=== PATIENT | male | born 1940 | race Asian ===

== ENCOUNTER 2016-11-01 08:03 | Emergency (ER) | payer SELFPAY ==
[~2016-11-01] VITALS: Ht 172.7 cm; Wt 72.6 kg
[~2016-11-01 08:03] MED LIST: COLC0.6T46 PO; FAMO-92 PO; FERR325T62 PO; FURO10SO PO; LOSA25TA14 PO; TERA5CAP PO; VIC PO; WARF2TAB1 PO; WARF4TAB PO; [UNRECOGNIZED DRUG - CODE] PO; [UNRECOGNIZED DRUG - CODE] PO
[2016-11-01 08:08] VITALS: BP 127/76
--- NOTE | 2016-11-01 08:16 | NUR ---
Patient ambulated with assistance to bed 8.
--- NOTE | 2016-11-01 08:16 | NUR ---
PATIENT PRESENTS TO ED WITH C/O OF HEMATURIA . PT STATES HE HAD PRITCHARD CATHETER 3 WEEKS AGO AND WAS STARTED ON FLOMAX . DENIES N/V/D; SKIN IS PINK/WARM/DRY; AAOX4 WITH EVEN AND STEADY GAIT; LUNGS CLEAR BL; HR EVEN AND REGULAR; PT DENIES ANY FEVER, CP, SOB, OR COUGH AT THIS TIME; PATIENT REPORTS OF ABDOMINAL/BLADDER PAIN AT THIS ; VSS; PATIENT POSITIONED FOR COMFORT; HOB ELEVATED; BEDRAILS UP X2; BED DOWN. ER MD MADE AWARE OF PT STATUS.
[2016-11-01 09:46] VITALS: BP 119/76
== END 2016-11-01 09:46 | disposition home or self-care (01) ==
LOC: MED 08:03
DX: N39.0 Urinary tract infection, site not specified (principal); I10 Essential (primary) hypertension; I50.9 Heart failure, unspecified; I48.91 Unspecified atrial fibrillation; Z79.899 Other long term (current) drug therapy
CPT/HCPCS: 51702; 81002; 99284

== ENCOUNTER 2016-11-02 10:28 | Inpatient (IN) | payer MEDICAID, OTHER ==
[~2016-11-02] VITALS: Ht 172.7 cm; Wt 67.6 kg
[~2016-11-02 10:28] MED LIST changes: -COLC0.6T46 PO; +COLCHICINE0.6 M1 PO; +COUMADIN2 M1 PO; +COUMADIN4 MG PO; +COZAAR25 MG PO; -FAMO-92 PO; -FERR325T62 PO; +FERRATE325 MG PO; -FURO10SO PO; +LASIX10 MG/M1 PO; -LOSA25TA14 PO; +PEPCID40 MG PO; +POTASSIUM1 PDS PO; -TERA5CAP PO; +TERAZOSIN5 MG PO; +ULTRA B-100 COM1 TER PO; -VIC PO; +VICODIN 5/500 M1 TAB PO; -WARF2TAB1 PO; -WARF4TAB PO; -[UNRECOGNIZED DRUG - CODE] PO; -[UNRECOGNIZED DRUG - CODE] PO
[2016-11-02 10:41] VITALS: BP 134/58
--- NOTE | 2016-11-02 11:53 | NUR ---
PT AMBULATED TO BED 8
--- NOTE | 2016-11-02 12:00 | NUR ---
PT BIB AND SON;PT HAD PIRTCHARD PLACED IN ED YESETERDAY, C/O BLEEDING SINCE FOLY WAS PLACED;PT DENIES ANY CP/SOB/DIZZINESS/HEADACHE AT THIS TIME;PT HAS HX OF CHF;AAOX4; NO ACUTE DISTRESS NOTED AT THIS TIME;UNLABORED BREATHING W/ SYMMETRICAL CHEST EXPANSION;HOB ELEVATED;NEEDS ATTENDED;SAFETY MEASURES DONE;MD Made aware of pt's condition.
[2016-11-02] MEDS ORDERED: NACL 0.9% 1,000 ML IV SCH (12:09)
--- NOTE | 2016-11-02 12:48 | NUR ---
IRRIGATION DONE BY ALEXIS BURROUGHS.PT TOLERATED WELL PROCEDURE;WILL CONTINUE TO MONITOR PT.
--- NOTE | 2016-11-02 13:30 | NUR ---
PT IS SLEEPING;NO ACUTE DISTRESS NOTED AT THIS TIME;WILL CONTINUE TO MONITOR PT.
[2016-11-02] MEDS ORDERED: MORPHINE SULFATE 2 MG/ML SYR IVP PRN (14:10)
[2016-11-02] MEDS ORDERED: ONDANSETRON 4 MG/2 ML VIAL IVP PRN (14:10)
--- NOTE | 2016-11-02 14:19 | NUR ---
PT LYING ON BED;NO ACUTE DISTRESS NOTED; AT BEDSIDE;WILL CONTINUE TO MONITOR PT
--- NOTE | 2016-11-02 15:11 | NUR ---
Patient will be admitted to care of DR BRODY. Admited tO TELE. Will go to [facility] [address]. Belongings list completed. Report to ALEXIS QUINTEROS.
--- NOTE | 2016-11-02 16:00 | NUR ---
RECEIVED REPORT FROM ER. PT ON THE FLOOR. PT IS ALERT AND ORIENTED. AT BEDSIDE. PT IS ON ROOM AIR. V/S WITHIN NORMAL RANGE. PT HAS IV ON L AC 20SL. PT HAS PERINEAL DERMATITIS AND BLE DISCOLORATION AND NON PITTING EDEMA. PT DENIES PAIN, SOB. PT HAS A PRITCHARD CATH W/ DARK RED BLOOD IN THE BAG. ADMINISTERED TELE MONITOR, ID BAND, AND YELLOW SOCKS AND FALL SIGN ON DOOR. WILL CONTINUE TO MONITOR PT AND ALSO ADMITTING ORDERS.
[2016-11-02] MEDS: NACL 0.9% 1,000 ML IV SCH (16:07)
[2016-11-02 16:36] VITALS: BP 121/61
[2016-11-02] MEDS ORDERED: CALCIUM GLUCONATE 500 MG TAB PO ONE (16:40)
[2016-11-02] MEDS ORDERED: PHYTONADIONE 10 MG/ML AMP IM ONE (17:45)
[2016-11-02] MEDS ORDERED: CALCIUM ACETATE 667 MG TAB PO ONE (17:50)
--- NOTE | 2016-11-02 18:00 | NUR ---
DR. CAMPOS WITH FAMILY, ANSWERING QUESTIONS.
--- NOTE | 2016-11-02 19:09 | NUR ---
ENDORSED PT TO THE UMBRELLA FINISHER NURSE AT BEDSIDE FOR CONTINUITY OF CARE. PT IS IN STABLE CONDITION. AT BEDSIDE. SHE WILL STAY UNTIL 9PM AND GO HOME. SHE WILL BE BACK IN THE MORNING. STILL WAITING FOR DR. CAMPOS'S PHONE CALL TO CLARIFY "K" ORDER. IM,IV OR PO. LEFT MESSAGE WITH PHARMACY RE. LOPRESSOR AND CALCIUM ACETATE. NOT GIVEN. JOSE A TO F/U.
[2016-11-02 19:45] VITALS: BP 85/48
--- NOTE | 2016-11-02 19:45 | NUR ---
RECEIVED PT IN BED. STABLE CONDITION FROM AM NURSE. AWAKE,ALERT AND ORIENTED X4. WITH FAMILY MEMBER AT BEDSIDE. NO ACUTE DISTRESS NOTED . ON TELE MONITOR. HAS IVF INFUSING WELL ON THE LT AC #20. CLEAR AND PATENT. PRITCHARD CATH STILL BLOODY. VITAL SIGNS TAKEN AND BP LOW 85/48, HR-90,R-18, TEMP 99.1 . ON RA 94% O2 SAT. NO C/O DIZZINESS, NOR PAIN NOTED. CHECKED THE BP SEVERAL TIMES AND STILL LOW 84/42. WILL PAGED TO MADE HIM AWARE. BED ON LOW POSITION.CALL LIGHT WITHIN EASY REACH. WILL CONTINUE TO MONITOR.
[2016-11-02] MEDS ORDERED: NACL 0.9% 500 ML IV ONE (20:00)
--- NOTE | 2016-11-02 20:05 | NUR ---
DR. DIAZ WAS PAGED @194 .CALLED BACK. MADE AWARE ABOUT LOW BP AND LOW BLOODY URINE OUTPUT . WITH ORDERS.
[2016-11-02] MEDS: METOPROLOL 25 MG TAB PO SCH (20:10)
--- NOTE | 2016-11-02 20:25 | NUR ---
CALLED PHARMACY REGARDING VIT K IM ORDER. STILL NEED CLARIFICATION WITH MD ABOUT THE ROUTE. DR. DIAZ WAS PAGED AND CALLED BACK .WILL CHANGE THE ROUTE.
[2016-11-02] MEDS ORDERED: TERAZOSIN 5 MG CAP PO SCH (21:00)
[2016-11-02] MEDS ORDERED: FERROUS SULFATE 325 MG PO SCH (21:00)
--- NOTE | 2016-11-02 21:21 | NUR ---
TRIED TO CONTACT US . ABLE TO TALK TO TIAGO,MADE AWARE OF THE STAT US RENAL.
--- NOTE | 2016-11-02 21:30 | NUR ---
PAGED DR. DIAZ FOR LATEST BP 93/49 AFTER THE NS BOLUS. NO NEW ORDER . CONTINUE THE PREVIOUS IV NS 60 ML/HR. REGARDING THE GASTRIC OB, HE SAID TO CANCEL THEN ORDER STOOL OB X1.
--- NOTE | 2016-11-02 22:00 | NUR ---
DR. DIAZ PAGED AGAIN ABOUT THE RESULT OF CBC. CALLED BACK AND MADE AWARE. WITH ORDERS,TYPE AND SCREEN AND REPEAT HH AT 0300.
[2016-11-02] MEDS ORDERED: PHYTONADIONE 10 MG/ML AMP IV ONE (22:20)
--- NOTE | 2016-11-02 22:30 | NUR ---
BLADDER SCAN WAS DONE. THERE IS 384 ML URINE RESIDUAL . NO BLADDER DISTENTION NOTED. PRITCHARD CATH EMPTIED 800ML. WILL CONTINUE TO MONITOR PRITCHARD OUTPUT.
[2016-11-02] MEDS ORDERED: PHYTONADIONE 5 MG in NACL 0.9% 50 ML IV ONE (22:35)
[2016-11-02] MEDS ORDERED: PHYTONADIONE 10 MG/ML AMP ONE (22:50)
[2016-11-02] MEDS ORDERED: CALCIUM GLUCONATE 500 MG TAB PO SCH (23:20)
[2016-11-02] MEDS: SIMVASTATIN 40 MG TAB PO SCH (23:44)
--- NOTE | 2016-11-02 23:45 | NUR ---
SLEEPING WELL. NO ACUTE DISTRESS NOTED. V/S TAKEN AND LATEST TEMP-97.8-BP-97/52,PULSE-90,RESP-18 AND O2 SAT 97%. WILL CONTINUE TO MONITOR.
[2016-11-02 23:48] VITALS: BP 97/52
--- NOTE | 2016-11-03 00:05 | NUR ---
PT KEPT NPO AFTER MN ORDERED. PT VERBALIZED UNDERSTANDING.
--- NOTE | 2016-11-03 00:40 | NUR ---
MADE ROUNDS. PT IS ASLEEP.NO S/S OF ANY DISCOMFORT NOR PAIN NOTED. WILL CONTINUE TO MONITOR.
[2016-11-03] MEDS: NACL 0.9% 1,000 ML IV SCH ×2 (01:14→23:08)
[2016-11-03 03:52] VITALS: BP 96/50
--- NOTE | 2016-11-03 04:10 | NUR ---
ABLE TO TALK TO DR. DIAZ. MADE AWARE OF THE RESULT OF REPEAT H/H 8.3 AND 24.9 ALSO RELAYED TO HIM RESULT OF BLADDER SCAN ANS RENAL US. NO NEW ORDER MADE.
--- NOTE | 2016-11-03 04:50 | NUR ---
PT C/O PAIN AN DISCOMFORT ON THE BLADER. CHECKED BLADDER IS FULL AND DISTENDED. IRRIGATED PRITCHARD CATH ORDERED WITH STERILE WATER . OBTAINED BLOOD CLOTS .CATHETER STARTED FLOWING BLOODY URINE AGAIN. PT SAID HE FEEL BETTER, NO MORE PAIN. WILL STILL CONTINUE TO MONITOR.
--- NOTE | 2016-11-03 06:00 | NUR ---
SLEEPING AT THIS TIME. NO S/S OF ANY DISTRESS NOR PAIN NOTED.
--- NOTE | 2016-11-03 07:10 | NUR ---
ENDORSED PT IN STABLE CONDITION TO AM NURSE.
--- NOTE | 2016-11-03 07:11 | NUR ---
RECEIVED REPORT FROM THE RESIDENTIAL LEASING AGENT AT BEDSIDE FOR CONTINUITY OF CARE. PT WOKE UP WHEN WE WALKED IN. HE IS AWAKE AND ORIENTED. PT'S BLADDER WAS HARD AND SLIGHTLY DISTENDED. IRRIGATED THE PRITCHARD CATH WITH 120ML OF STERILE WATER, PT PRITCHARD CATH IS NOW FLOWING FREELY. PT MORE COMFORTABLE. INSTRUCTED PT UROLOGIST CONSULT TODAY. UPDATED THE BOARD. WILL BE BACK TO FURTHER ASSESS PT.
--- NOTE | 2016-11-03 07:30 | NUR ---
VS WITHIN IN NORMAL RANGE. IV IN L AC 20G, STILL INTACT AND PATENT. NS AT 60ML. NO COMPLAINTS. DENIES PAIN. PRITCHARD CATH STILL FLOWING FREELY. WILL CONTINUE TO MONITOR PT.
[2016-11-03 08:00] VITALS: BP 100/56
--- NOTE | 2016-11-03 08:30 | NUR ---
SPOKE TO DR. CAMPOS ABOUT PT'S CRITICAL LABS: BUN/CREA 65/5.[address] SANDOVAL. NO ORDERS GIVEN. I ALSO TOLD HIM WE ARE IRRIGATING BLADDER Q 2-3 HRS.
[2016-11-03] MEDS: METOPROLOL 25 MG TAB PO SCH (08:53)
[2016-11-03] MEDS: TAMSULOSIN 0.4 MG CAP PO SCH (08:54)
--- NOTE | 2016-11-03 08:55 | NUR ---
ADMINISTERED MORNING MEDS. PT BP IS STILL ON THE LOW END SO I HELD THE LOPRESSOR. PT TOLERATED IT WELL.
[2016-11-03] MEDS ORDERED: POTASSIUM PHOSPHATE PO SCH (09:00)
[2016-11-03] MEDS ORDERED: POTASSIUM ACETATE PO SCH (09:00)
[2016-11-03] MEDS ORDERED: FAMOTIDINE 40 MG PO SCH (09:00)
[2016-11-03] MEDS ORDERED: NON-FORMULARY ITEM (Colchicine 0.6 MG) PO SCH (09:00)
[2016-11-03] MEDS ORDERED: POTASSIUM GLUCONATE PO SCH (09:00)
--- NOTE | 2016-11-03 10:20 | NUR ---
PT WAS C/O OF BLADDER DISCOMFORT. NOTED NO URINE FLOWING. IRRIGATED 120ML OF STERILE WATER. PRITCHARD IS FLOWING AGAIN. EMPTIED 450ML. ABOUT 500ML IN THE PRITCHARD BAG. PT TOLERATED WELL. CHANGED ALL LINENS AND PERFORMED ADLS. PT IS CLEAN AND COMFORTABLE. ALL NEEDS MET. ALL SAFETY MEASURE IN PLACE. WILL CONTINUE TO MONITOR PT.
--- NOTE | 2016-11-03 11:31 | NUR ---
PT RESTING. IV PUMP BEEPING. RESTARTED IV PUMP. FLOWING NOW. ASKED ABOUT HIS BLADDER. HE IS FEELING A BIT UNCOMFORTABLE. IRRIGATED ABOUT 280MLS. URINE FLOWING IN THE CATHETER. WILL CONTINUE TO MONITOR PT.
[2016-11-03 12:00] VITALS: BP 96/45
--- NOTE | 2016-11-03 13:30 | NUR ---
AND DAUGHTER AT BEDSIDE. PT IS RESTING COMFORTABLY. NO ABD DISCOMFORT. PRITCHARD STILL FLOWING FREELY. WILL CONTINUE TO MONITOR PT.
--- NOTE | 2016-11-03 15:15 | NUR ---
SPOKE TO DR. CAMPOS RE PT CARE. PER DR. CAMPOS, DR. ZAPATA WAS HERE THIS MORNING. PER DR. ZAPATA, UROLOGICALLY SPEAKING PT IS FINE. WILL GET HIM ESTABLISHED WITH A UROLOGIST OUTPT BASIS. DR. CAMPOS STATES THAT WE WILL KEEP MONITORING HIS LABS. ONCE THE LABS IMPROVE, PT CAN BE DISCHARGED. PT WILL BE GOING HOME IN A FEW DAYS WITH THE PRITCHARD CATH AND WILL TEACH FAMILY TO IRRIGATE. LABS THIS AFTERNOON AND TOMORROW. WILL CONTINUE TO MONITOR PT.
[2016-11-03 16:00] VITALS: BP 88/47
[2016-11-03] MEDS: CALCIUM CARB/VIT-D 500 MG/200 IU 1 TAB PO SCH (16:10)
--- NOTE | 2016-11-03 16:26 | NUR ---
IRRIGATED PT'S PRITCHARD CATH AGAIN. FLUSHED WITH 180 MLS OF STERILE WATER. PRITCHARD NOW FLOWING. PT TOLERATED WELL.
[2016-11-03] MEDS ORDERED: CALCIUM ACETATE 667 MG TAB PO SCH (17:00)
--- NOTE | 2016-11-03 18:20 | NUR ---
HAD A VERY SMALL BM. COLLECTED THE SAMPLE FOR OCCULT BLOOD SENT IT W/ DIOMEDES TO THE LAB. PT IS BACK IN BED. COMFORTABLE. WOULD LIKE FOR ME TO CALL AND SPEAK TO DAUGHTER BEFORE I LEAVE FOR UPDATES.
[2016-11-03] MEDS ORDERED: WARFARIN 1 MG TAB PO ONE (18:30)
--- NOTE | 2016-11-03 18:51 | NUR ---
CALLED AND SPOKE VELLY, DAUGHTER OF PT. UPDATED HER WITH HIS CONDITION AND WHAT THE PLAN IS. ANSWERED ALL QUESTIONS.
--- NOTE | 2016-11-03 19:30 | NUR ---
RECEIVED REPORT FROM DAY RN AT BEDSIDE, PATIENT IS AAOX4 RESTING IN BED WITH FAMILY AT BEDSIDE, PATIENT IS ON ROOM AIR, NO SOB OR SIGN OF DISTRESS AT THIS TIME, IV TO LAC PATENT AND INTACT WITH IV FLUIDS INFUSING WELL, PATIENT HAS PRITCHARD DRAINING DARK RED BLOODY URINE. BLADDER IS MILDLY DISTENDED, PATIENT DENIES PAIN AT THIS TIME, SKIN IS INTACT WITH PERINEAL DERMATITIS AND BLE EDEMA NON PITTING AND DISCOLORATION. DISCUSSED PLAN OF CARE WITH PATIENT, PATIENT VERBALIZED UNDERSTANDING, CALL LIGHT WITHIN REACH. WILL CONTINUE TO MONITOR.
--- NOTE | 2016-11-03 19:39 | NUR ---
ENDORSED PT TO THE VICE PRESIDENT TAX NURSE AT BEDSIDE FOR CONTINUITY OF CARE. PT IS IN STABLE CONDITION.
[2016-11-03 19:56] VITALS: BP 99/50
[2016-11-03] MEDS: SIMVASTATIN 40 MG TAB PO SCH (21:02)
--- NOTE | 2016-11-03 21:04 | NUR ---
PM MEDICATION ADMINISTERED, PATIENT TOLERATED WELL, PATIENT C/O BLADDER FULLNESS, IRRIGATED WITH 150CC OF STERILE WATER, PRITCHARD NOW DRAINING, CALL LIGHT WITHIN REACH. WILL CONTINUE TO MONITOR.
[2016-11-04] VITALS: BP 102/54
--- NOTE | 2016-11-04 00:10 | NUR ---
VITAL SIGNS STABLE, NO SOB OR SIGN OF DISTRESS, IRRIGATED PRITCHARD WITH 180 ML STERILE WATER, PATIENT TOLERATED WELL, PATIENT RESTING IN BED, CALL LIGHT WITHIN REACH. WILL CONTINUE TO MONITOR.
--- NOTE | 2016-11-04 02:22 | NUR ---
PATIENT SLEEPING, NO SOB OR SIGN OF DISTRESS AT THIS TIME, CALL LIGHT WITHIN REACH. WILL CONTINUE TO MONITOR.
--- NOTE | 2016-11-04 03:50 | NUR ---
IRRIGATED PRITCHARD WITH 180 CC STERILE WATER, PATIENT TOLERATED WELL, VITAL SIGNS STABLE, NO SIGN OF DISTRESS AT THIS TIME. CALL LIGHT WITHIN REACH. WILL CONTINUE TO MONITOR
[2016-11-04 04:00] VITALS: BP 101/56
--- NOTE | 2016-11-04 07:20 | NUR ---
RECEIVED PT IN BED. ALERT, AWAKE, ORIENTEDX4. NO SOB NOTED AT THIS TIME. ON ROOM AIR. BREATHING EVEN AND UNLABORED. DENIES ANY PAIN OR DISCOMFORT AT THIS TIME. POSITIVE BOWEL SOUNDS NOTED ON FOUR QUADRANTS. PT AMBULATORY WITH ASSIST. SOME DERMATITIS NOTED ON PERINEAL AREA, KEPT CLEAN AND DRY. PT WITH FC, HEMATURIA NOTED. SAFETY PRECAUTION IN PLACE. CALL LIGHT WITHIN REACH.
--- NOTE | 2016-11-04 07:30 | NUR ---
ENDORSED PATIENT TO DAY RN AT BEDSIDE PATIENT IN STABLE CONDITION
--- NOTE | 2016-11-04 07:50 | NUR ---
PATIENT HAS BEEN SCREENED AND CATEGORIZED MODERATE NUTRITION RISK. PATIENT WILL BE SEEN WITHIN 3-5 DAYS OF ADMISSION. 11/05/16-11/07/[address]
[2016-11-04 08:00] VITALS: BP 102/61
[2016-11-04] MEDS: TAMSULOSIN 0.4 MG CAP PO SCH (09:04)
[2016-11-04] MEDS: CALCIUM CARB/VIT-D 500 MG/200 IU 1 TAB PO SCH ×3 (09:04→17:27)
[2016-11-04] MEDS: METOPROLOL 25 MG TAB PO SCH ×2 (09:05→20:59)
--- NOTE | 2016-11-04 09:50 | NUR ---
WOUND CARE EVALUATION NOTES: REASON FOR EVALUATION: PERINEAL DERMATITIS COMPLETE SKIN ASSESSMENT DONE ON THIS 76 Y/O MALE PATIENT FROM HOME TO [facility], WITH INITIAL DIAGNOSIS OF ACUTE RENAL FAILURE, GROSS HEMATURIA AND URINARY RETENTION. PAST MEDICAL HISTORY INCLUDE A FIB, CHF, HYPERTENSION, BPH AND CVA. ALL ABOVE INFORMATION WAS OBTAINED FROM THE ADMISSION H&P. LABS ARE WBC 5.4, H/H 7.6/22.7, GLUCOSE 91, ALBUMIN 2.6, PT/INR 13.4/1.4 AND PTT 29.7. CURRENT MEDS INCLUDE WARFARIN, CEFTRIAXONE, MORPHINE AND NORCO. PATIENT IS AWAKE, SLOWED MOVEMENTS BUT ABLE TO FOLLOW SIMPLE COMMANDS. SKIN WARM TO TOUCH WNL, TOENAILS ARE SLIGHTLY THICKENED, NO EDEMA, WITH HAIR GROWTH AND +3 BILATERAL PEDAL PULSES. FC 14 FR PATENT AND INTACT TO BLOODY URINE IN MODERATE AMOUNT. ABLE TO AMBULATE CLAIMED. BLE WITH DISCOLORATIONS NOTED. ABLE TO TURN SELF WITH NO ASSISTANCE. INITIAL PLAN OF CARE AND PRESSURE PREVENTIVE MEASURES DISCUSSED, ABLE TO VERBALIZE UNDERSTANDING. INTEGUMENTARY: SACRALCOCCYX TO PERIAREA - RED AND MOIST. PATIENT'S STATED THAT PATIENT HAD LOOSE BOWEL MOVEMENTS PRIOR TO ADMISSION. BLE - DARK DISCOLORATIONS RECOMMENDATIONS: -CLEANSE SACRALCOCCYX TO PERIAREA WITH MILD SOAP AND WATER, PAT DRY, APPLY Z GUARD BIDWC AND PRN WITH SOILING/DISPLACEMENT -CLEANSE BLE WITH MILD SOAP AND WATER, PAT DRY, APPLY VIT. A AND D OINT BIDWC AND LEAVE OPEN TO AIR. -TURN AND REPOSITION PATIENT Q2H -ASSESS AND MONITOR SKIN CONDITION DURING POSITION CHANGE, PLEASE PAY PARTICULAR ATTENTION TO SACRALCOCCYX, ELBOWS AND HEELS -OFFLOAD BILATERAL HEELS BY PLACING PILLOWS UNDER CALVES (ONE PILLOW EACH LEG) AT ALL TIMES, UNLESS OTHERWISE CONTRAINDICATED -KEEP SKIN CLEAN AND DRY AT ALL TIMES. RECOMMENDATIONS DISCUSSED WITH PRIMARY RN AND RESIDENT PHYSICIANS, DR WILDER AND DR ROMERO NO FOLLOW UP NEEDED AT THIS TIME. PLEASE CONTACT [facility] FOR ANY CONCERNS, QUESTIONS AND ANY CHANGES IN SKIN CONDITION.
--- NOTE | 2016-11-04 10:37 | NUR ---
CLARIFIED WITH DR. ROMERO REGARDING COUMADIN DOSE, PER PHARMACY, SINCE PT RECEIVED VIT K YESTERDAY. DR. ROMERO SAID HE WANTED TO STILL CONTINUE PT ON COUMADIN.DR ROMERO MADE AWARE OF LATEST H&H RESULT. JACKY PHARMACIST MADE AWARE.
[2016-11-04] MEDS ORDERED: Z-GUARD PASTE TP PRN (11:40)
[2016-11-04 12:00] VITALS: BP 107/70
--- NOTE | 2016-11-04 15:20 | NUR ---
P.T. NOTES P.T. EVAL DONE; D/C FROM P.T. AFTER EVAL, NURSING TO AMBULATE PATIENT AD RODO.
[2016-11-04] MEDS: NACL 0.9% 1,000 ML IV SCH (15:33)
[2016-11-04 16:00] VITALS: BP 103/59
[2016-11-04] MEDS: WARFARIN 1 MG TAB PO SCH (17:30)
--- NOTE | 2016-11-04 19:20 | NUR ---
PT ENDORSED TO UPCOMING SHIFT ON STABLE CONDITION.
--- NOTE | 2016-11-04 19:22 | NUR ---
RECEIVED REPORT FROM DAY RN FOR CONTINUITY OF CARE. PATIENT IS A&OX4, DISCUSSED PLAN OF CARE WITH PATIENT AND FAMILY MEMBERS AT BEDSIDE, VERBALIZED UNDERSTANDING. SHIFT ASSESSMENT DONE, VS TAKEN, STABLE. NO S/S OF RESPIRATORY DISTRESS NOTED ON ROOM AIR. PATIENT DENIES PAIN. IV TO LT AC 20 GAUGE PATENT AND INFUSING FLUIDS WELL. REDNESS TO LAUREEN AREA NOTED, WELL BLE DISCOLORATION. PRITCHARD CATHETER IN PLACE DRAINING DARK RED BLOOD TINGED URINE. SAFETY/ FALL PRECAUTIONS ENFORCED. CALL LIGHT WITHIN REACH. WILL CONTINUE TO MONITOR.
[2016-11-04 20:00] VITALS: BP 94/61
[2016-11-04] MEDS: SIMVASTATIN 40 MG TAB PO SCH (20:58)
[2016-11-04] MEDS: HYDROcodone/APAP 7.5/325 MG 1 TAB PO PRN (20:58)
--- NOTE | 2016-11-04 20:58 | NUR ---
DUE MEDICATIONS ADMINISTERED, TOLERATED WELL. HELP BLOOD PRESSURE MEDICATION PER PARAMETER. EMPTIED PRITCHARD CATHETER 250 ML DARK RED OUTPUT. CALL LIGHT WITHIN REACH. Addendum: 11/05/16 at 0225 by Hilary Dumont RN HELD* BLOOD PRESSURE MEDICATION
[2016-11-04] MEDS: VITAMIN A/VITAMIN D OINT 113 GM TUBE TP SCH (20:59)
[2016-11-04] MEDS: Z-GUARD PASTE TP SCH (21:00)
[2016-11-05] VITALS: BP 117/69
--- NOTE | 2016-11-05 00:03 | NUR ---
VS TAKEN, STABLE. PRITCHARD CATHETER IRRIGATED. WILL CONTINUE TO MONITOR.
--- NOTE | 2016-11-05 02:29 | NUR ---
PT IS SLEEPING. NO S/S OF DISTRESS OR DISCOMFORT NOTED. WILL CONTINUE TO MONITOR.
[2016-11-05 04:00] VITALS: BP 114/67
--- NOTE | 2016-11-05 04:16 | NUR ---
VS TAKEN, STABLE. IRRIGATED PRITCHARD CATHETER, PT TOLERATED WELL. CALL LIGHT WITHIN REACH.
--- NOTE | 2016-11-05 06:22 | NUR ---
PT IS SLEEPING. NO S/S OF DISTRESS OR DISCOMFORT NOTED. WILL CONTINUE TO MONITOR.
--- NOTE | 2016-11-05 07:25 | NUR ---
ENDORSED PATIENT TO DAY RN FOR CONTINUITY OF CARE, PATIENT IS IN STABLE CONDITION.
--- NOTE | 2016-11-05 07:26 | NUR ---
RECEIVED REPORT FROM THE CAP JEWEL PLATE ASSEMBLER NURSE AT BEDSIDE FOR CONTINUITY OF CARE. PT IS AWAKE AND ORIENTED. I RE-INTRODUCED MYSELF AND UPDATED THE BOARD. PT WAS COMPLAINING OF SOME BLADDER RETENTION PAIN. NO STERILE WATER AT BEDSIDE. WILL GET SOME AND IRRIGATE HIM. PT HAS NO OTHER COMPLAINTS. WILL BE BACK.
[2016-11-05 08:00] VITALS: BP 108/69
--- NOTE | 2016-11-05 08:10 | NUR ---
PT V/S WITHIN NORMAL RANGE. I IRRIGATED THE PRITCHARD WITH 120 ML OF STERILE NORMAL SALINE. PT TOLERATED WELL. THE PRITCHARD IS FLOWING WITH PINK URINE. DID NOT NOTICE ANY CLOTS. EMPTIED 300MLS OF HEMATURIA. NO COMPLAINTS AT THIS TIME. PT EATING HIS BREAKFAST. WILL CONTINUE TO MONITOR PT.
[2016-11-05] MEDS: NACL 0.9% 1,000 ML IV SCH (08:48)
[2016-11-05] MEDS: METOPROLOL 25 MG TAB PO SCH (08:49)
[2016-11-05] MEDS: TAMSULOSIN 0.4 MG CAP PO SCH (08:49)
[2016-11-05] MEDS: CALCIUM CARB/VIT-D 500 MG/200 IU 1 TAB PO SCH ×3 (08:49→17:17)
[2016-11-05] MEDS: VITAMIN A/VITAMIN D OINT 113 GM TUBE TP SCH (08:50)
[2016-11-05] MEDS: Z-GUARD PASTE TP SCH (08:51)
--- NOTE | 2016-11-05 08:58 | NUR ---
ADMINISTERED MORNING MEDS. PT TOLERATED THEM WELL. APPLIED A&D OINTMENT ON BLE FOR THE DISCOLORATION AND DRYNESS. APPLIED ZGUARD ON PERINEAL AREA FOR REDNESS. PT TOLERATED WELL. WILL CONTINUE TO MONITOR PT.
--- NOTE | 2016-11-05 10:31 | NUR ---
SS NOTE: I SPOKE WITH PT'S DTR, YOSI MILOANGEL ([phone]) TO OBTAIN CLARIFICATION REGARDING PT'S DISCHARGE PLAN. SHE STATED THAT PT RENTS A ROOM WITH HIS , KELLIE. SHE ALSO STATED THAT SHE LIVES IN [place] BUT ONE OF THE CHILDREN WOULD BE ABLE TO PROVIDE TRANSPORTATION FOR PT UPON DISCHARGE. SHE REPORTED THAT THEY ARE NOT CONCERNED ABOUT CARING FOR PT'S PRITCHARD SINCE PT HAS HAD A PRITCHARD AT HOME BEFORE BUT THEY ARE CONCERNED ABOUT THE HEMATURIA. SHE ALSO REPORTED THAT PT DOES NOT HAVE HIS GREEN CARD AND THAT IS WHY PT DOES NOT HAVE INSURANCE BUT HER MOM, PT'S IS NOT FORTHCOMING WITH THE PROCESS FOR PT'S GREEN CARD.
[2016-11-05 12:00] VITALS: BP 91/62
--- NOTE | 2016-11-05 12:04 | NUR ---
PT COMPLAINED OF PAIN IN LOWER ABDOMEN. I IRRIGATED HIS PRITCHARD CATH WITH 180ML OF STERILE WATER. SOME CLOTS BUT PINK. NO MORE DARK RED BLOOD IN URINE. PT TOLERATED WELL. NO MORE PRESSURE. WILL CONTINUE TO MONITOR PT.
[2016-11-05] MEDS: HYDROcodone/APAP 7.5/325 MG 1 TAB PO PRN (12:12)
--- NOTE | 2016-11-05 13:25 | NUR ---
CALLED VELLY AND LEFT MESSAGE TO HAVE CALL PT. PT GETTING A BIT AGITATED. CHECKED ON PT, PT WAS SLEEPING SITTING UP. HE ATE ABOUT 1/3 OF HIS LUNCH. LOWERED HIS HEAD SO THAT HE CAN BE MORE COMFORTABLE. WILL CONTINUE TO MONITOR PT.
--- NOTE | 2016-11-05 14:14 | NUR ---
SON [place] IS AT BEDSIDE VISITING WITH PT. PT DENIES ANY PAIN. ALL NEEDS MET. WILL CONTINUE TO MONITOR PT.
[2016-11-05] MEDS ORDERED: NORCO 325 MG-7.1 TAB PO (15:04)
[2016-11-05] MEDS ORDERED: LOPRESSOR25 MG PO (15:04)
--- NOTE | 2016-11-05 15:16 | NUR ---
FAMILY IS VISITING. DR. ROMERO WROTE ORDERS FOR DISCHARGE. DR. ROMERO IS IN THE ROOM WITH THE FAMILY TO EXPLAIN AND ANSWER QUESTIONS.
[2016-11-05 16:00] VITALS: BP 90/57
--- NOTE | 2016-11-05 16:12 | NUR ---
SS NOTE: I SPOKE WITH PT'S AND DTR BEDSIDE. THEY REQUESTED THAT I SPOKE WITH PT'S SON, YAZMIN ([phone]). I CALLED YAZMIN AND HE INQUIRED IF THERE WERE ANY HOME CARE SERVICES THAT CAN BE PROVIDED FOR PT SINCE THEY HAVE HIS 'S TOMORROW. I PROVIDED HIM WITH THE OPTION FOR PRIVATE PAY HOME CARE SO THAT THERE CAN BE A CAREGIVER AT HOME WITH PT DURING THE TOMORROW. I OFFERED TO PROVIDE PT'S KELLIE A LIST OF PRIVATE PAY HOME CARE SERVICES, HE WAS IN AGREEMENT. I SPOKE WITH PT AND PT'S BEDSIDE. I PROVIDED PT'S KELLIE WITH THE LIST OF PRIVATE PAY HOME CARE SERVICES.
[2016-11-05] MEDS ORDERED: FLOMAX0.4 MG PO (16:55)
[2016-11-05] MEDS ORDERED: CIPRO250 MG PO (16:59)
[2016-11-05] MEDS ORDERED: TOPROL XL25 MG PO (17:00)
[2016-11-05] MEDS ORDERED: LEVAQUIN750 MG PO (17:02)
[2016-11-05] MEDS: WARFARIN 1 MG TAB PO SCH (17:19)
[2016-11-05] MEDS ORDERED: COUMADIN2 M1 PO (17:24)
--- NOTE | 2016-11-05 18:15 | NUR ---
GAVE PT AND FAMILY D/C INSTRUCTIONS. ANSWERED ALL QUESTIONS. PT SIGNED APPROPRIATE PAPERS. REMOVED IV, CANNULA INTACT. REMOVED THE TELE MONITOR. REMOVED ALL ID BANDS. PAPER WILL GET DRESSED AND GATHER ALL PERSONAL BELONGINGS. WILL LET ME KNOW WHEN HE IS READY TO LEAVE SO WE CAN WHEEL HIM OUT. PT IS IN STABLE CONDITION.
--- NOTE | 2016-11-05 18:45 | NUR ---
PT WHEELED OUT BY [facility], ACCOMPANIED BY FAMILY. HE HAS ALL HIS PERSONAL BELONGINGS WITH HIM. I ALSO GAVE HIM SUPPLIES TO IRRIGATE PRITCHARD NEEDED AND INSTRUCTED THE FAMILY HOW TO DO SO.
== END 2016-11-05 18:45 | disposition home or self-care (01) | DRG 725 ==
LOC: MED 10:28 → MTU 14:21
PROVIDERS: ADMIT Student in an Organized Health Care Education/Training Program; ATTEND Student in an Organized Health Care Education/Training Program
DX: N40.1 Benign prostatic hyperplasia with lower urinary tract symptoms (principal); I50.43 Acute on chronic combined systolic (congestive) and diastolic (congestive) heart failure; N17.0 Acute kidney failure with tubular necrosis; N13.2 Hydronephrosis with renal and ureteral calculous obstruction; N39.0 Urinary tract infection, site not specified; D68.9 Coagulation defect, unspecified; I07.1 Rheumatic tricuspid insufficiency; I48.91 Unspecified atrial fibrillation; I11.0 Hypertensive heart disease with heart failure; N28.1 Cyst of kidney, acquired; E83.51 Hypocalcemia; E83.39 Other disorders of phosphorus metabolism; I27.2 Other secondary pulmonary hypertension; R80.9 Proteinuria, unspecified; R31.0 Gross hematuria; E78.5 Hyperlipidemia, unspecified; Z86.73 Personal history of transient ischemic attack (TIA), and cerebral infarction without residual deficits; Z82.49 Family history of ischemic heart disease and other diseases of the circulatory system; Z79.899 Other long term (current) drug therapy; Z79.01 Long term (current) use of anticoagulants